=== PATIENT | female | born 1980 | race Caucasian/White ===

== ENCOUNTER 2021-02-06 05:03 | Emergency (ER) | payer MEDICAID ==
[~2021-02-06] VITALS: Ht 172.7 cm; Wt 59.0 kg
[2021-02-06 05:06] VITALS: BP 120/80
== END 2021-02-06 05:42 | disposition left against medical advice (07) ==
LOC: ED 05:36
DX: R52 Pain, unspecified (principal); Z53.21 Procedure and treatment not carried out due to patient leaving prior to being seen by health care provider